=== PATIENT | male | born 1965 | race African-American/Black ===

== ENCOUNTER 2018-06-09 16:16 | Emergency (ER) | payer MEDICAID ==
[~2018-06-09] VITALS: Ht 185.4 cm; Wt 72.0 kg
[~2018-06-09 16:16] MED LIST: HYDR-4383 PO; NO HOME MEDS
[2018-06-09 16:52] LABS: EOSINOPHILS # (AUTO) 0.1 X10'3 (0-0.9); EOSINOPHILS % (AUTO) 1.7 % (0-6); HEMATOCRIT 45.5 % (42.0-52.0); LYMPHOCYTES # (AUTO) 1.8 X10'3 (1.1-4.8); LYMPHOCYTES % (AUTO) 54.1 % (21-51); MEAN CORPUSCULAR HEMOGLOBIN 30.4 PG (27.0-31.0); MEAN CORPUSCULAR VOLUME 92.1 FL (78-98); MEAN PLATELET VOLUME 8.7 FL (7.4-10.4); MONOCYTES # (AUTO) 0.3 X10'3 (0-0.9); MONOCYTES % (AUTO) 9.9 % (2-12); NEUTROPHILS # (AUTO) 1.1 X10'3 (1.8-7.7); NEUTROPHILS % (AUTO) 33.3 % (42-75); PLATELET COUNT 223 X10'3 (140-440); RED BLOOD COUNT 4.94 X10'6 (4.70-6.10); RED CELL DISTRIBUTION WIDTH 14.7 % (11.5-14.5); WHITE BLOOD COUNT 3.3 X10'3 (4.5-11.0)
[2018-06-09 17:03] LABS: ALANINE AMINOTRANSFERASE 66 U/L (12-78); ALBUMIN 3.6 G/DL (3.4-5.0); ALBUMIN/GLOBULIN RATIO 0.9 (1.1-1.5); ALKALINE PHOSPHATASE 67 IU/L (46-116); ANION GAP 2 (8-16); ASPARTATE AMINO TRANSFERASE 40 U/L (10-37); BILIRUBIN,TOTAL 0.2 MG/DL (0.1-1.0); BLOOD UREA NITROGEN 17 MG/DL (7-18); BUN/CREATININE RATIO 15.7 (5.4-32.0); CALCIUM 9.7 MG/DL (8.5-10.1); CHLORIDE 100 MMOL/L (99-107); CREATININE 1.08 MG/DL (0.60-1.10); GLUCOSE 73 MG/DL (70-104); POTASSIUM 5.3 MMOL/L (3.5-5.1); SODIUM 138 MMOL/L (135-145); TOTAL CARBON DIOXIDE 35.9 MMOL/L (24-32); TOTAL PROTEIN 7.7 G/DL (6.4-8.2); eGFR 86 ML/MIN
[2018-06-09] MEDS ORDERED: normal saline 1000ML IV soln IVB ONE (17:05)
[2018-06-09 17:24] LABS: ACETAMINOPHEN < 2.0 UG/ML (10-30); ETHANOL < 0.010 GM/DL (0.0-0.010)
[2018-06-09 17:27] VITALS: BP 124/78
[2018-06-09] MEDS ORDERED: fentaNYL/PF 50MCG/1 ML 2ML syringe ONE (17:28)
[2018-06-09] MEDS ORDERED: LIDOcaine Viscous 15ml cup ONE (17:28)
[2018-06-09] MEDS ORDERED: MIDAZolam 5mg/5ml vial ONE (17:28)
[2018-06-09 17:47] VITALS: BP 127/72
[2018-06-09 17:57] VITALS: BP 115/58
[2018-06-09 18:07] VITALS: BP 117/56
[2018-06-09 18:17] VITALS: BP 126/56
== END 2018-06-09 19:03 ==
LOC: ER 16:16
DX: T18.2XXA Foreign body in stomach, initial encounter (principal); K59.00 Constipation, unspecified; R45.851 Suicidal ideations; F32.9 Major depressive disorder, single episode, unspecified; F20.9 Schizophrenia, unspecified; F12.90 Cannabis use, unspecified, uncomplicated; F15.90 Other stimulant use, unspecified, uncomplicated; F14.90 Cocaine use, unspecified, uncomplicated; Z59.0 Homelessness; Z56.0 Unemployment, unspecified; Z98.890 Other specified postprocedural states; Z88.5 Allergy status to narcotic agent; Z88.0 Allergy status to penicillin; Y92.9 Unspecified place or not applicable
CPT/HCPCS: 36415; 43247; 74018; 74021; 80053; 80320; 80329; 84443; 85025; 99152; 99285; J2250; J3010; J7030; A4620

== ENCOUNTER 2022-04-27 13:59 | Emergency (ER) | payer MEDICAID ==
[~2022-04-27] VITALS: Ht 185.4 cm; Wt 70.0 kg
[2022-04-27 14:30] VITALS: BP 122/80
[2022-04-27] MEDS ORDERED: morphine 4 MG/ML inj SYRINge IM ONE (15:30)
[2022-04-27] MEDS ORDERED: IOHEXOL 12MG/ML oral solution 500 ML BOTTLE PO ONE (15:40)
[2022-04-27] MEDS ORDERED: morphine 4 MG/ML inj SYRINge IV PRN (15:40)
[2022-04-27 16:34] LABS: BASOPHILS % (AUTO) 0.7 % (0-1); EOSINOPHILS % (AUTO) 0.5 % (0-6); HEMATOCRIT 45.4 % (42.0-52.0); HEMOGLOBIN 14.8 g/dl (14.0-17.9); LYMPHOCYTES # (AUTO) 1.2 X10'3 (1.1-4.8); LYMPHOCYTES % (AUTO) 21.9 % (21-51); MEAN CORPUSCULAR HEMOGLOBIN 30.2 PG (27.0-31.0); MEAN CORPUSCULAR HGB CONC 32.6 g/dL (33.0-36.5); MEAN CORPUSCULAR VOLUME 92.5 FL (78-98); MEAN PLATELET VOLUME 8.5 FL (7.4-10.4); MONOCYTES # (AUTO) 0.4 X10'3 (0-0.9); MONOCYTES % (AUTO) 7.3 % (2-12); NEUTROPHILS # (AUTO) 3.7 X10'3 (1.8-7.7); NEUTROPHILS % (AUTO) 69.6 % (42-75); PLATELET COUNT 245 X10'3 (140-440); RED BLOOD COUNT 4.91 X10'6 (4.70-6.10); RED CELL DISTRIBUTION WIDTH 14.4 % (11.5-14.5); WHITE BLOOD COUNT 5.4 X10'3 (4.5-11.0)
[2022-04-27 16:49] LABS: ALANINE AMINOTRANSFERASE 36 U/L (12-78); ALBUMIN 3.9 G/DL (3.4-5.0); ALBUMIN/GLOBULIN RATIO 0.9 (1.1-1.5); ALKALINE PHOSPHATASE 84 IU/L (46-116); ANION GAP 6 (8-16); ASPARTATE AMINO TRANSFERASE 32 U/L (10-37); BILIRUBIN,TOTAL 0.6 MG/DL (0.1-1.0); BLOOD UREA NITROGEN 19 MG/DL (7-18); BUN/CREATININE RATIO 20.9 (5.4-32.0); CALCIUM 9.8 MG/DL (8.5-10.1); CHLORIDE 103 MMOL/L (99-107); CREATININE 0.91 MG/DL (0.60-1.10); GLUCOSE 86 MG/DL (70-104); POTASSIUM 3.3 MMOL/L (3.5-5.1); SODIUM 140 MMOL/L (135-145); TOTAL CARBON DIOXIDE 31.5 MMOL/L (24-32); TOTAL PROTEIN 8.1 G/DL (6.4-8.2); eGFR > 90 ML/MIN
--- NOTE | 2022-04-27 17:03 | NUR ---
PATIENT REFUSES TO DRINK CT PREP. PATIENT WILL BE DC HOME.
--- NOTE | 2022-04-27 19:35 | NUR ---
AWOKE PT AND WHEEL ED PT TO LOBBY TO AWAIT FOR A TAXI THAT WILL TAKE HIM TO [facility] [address] PER HIS REQUEST PT DENIES THE NEED FOR CLOTHING OR FOOOD AND STATES HE HAS FRIENDS IN [facility] THAT HELP ., PT DISCHARGED
== END 2022-04-27 19:36 | disposition home or self-care (01) ==
LOC: ER 14:00
DX: K40.90 Unilateral inguinal hernia, without obstruction or gangrene, not specified as recurrent (principal); F12.90 Cannabis use, unspecified, uncomplicated; F15.20 Other stimulant dependence, uncomplicated; F14.10 Cocaine abuse, uncomplicated; Z88.8 Allergy status to other drugs, medicaments and biological substances; Z59.00 Homelessness unspecified; Z56.0 Unemployment, unspecified
CPT/HCPCS: 36415; 80053; 85025; 96372; 99284; J2270

== ENCOUNTER 2022-05-10 13:19 | Emergency (ER) | payer MEDICAID ==
[~2022-05-10] VITALS: Ht 185.4 cm; Wt 75.0 kg
[2022-05-10] MEDS ORDERED: ketorolac trometh. 30mg/ml inj. IM ONE (15:10)
[2022-05-10] MEDS ORDERED: normal saline 1000ML IV soln IV ONE (15:30)
[2022-05-10 16:05] VITALS: BP 128/60
[2022-05-10 16:09] LABS: HEMOGLOBIN 14.3 g/dl (14.0-17.9); LYMPHOCYTES # (AUTO) 0.7 X10'3 (1.1-4.8); LYMPHOCYTES % (AUTO) 9.3 % (21-51); MEAN CORPUSCULAR HGB CONC 33.6 g/dL (33.0-36.5)
[2022-05-10 16:10] LABS: BASOPHILS % (AUTO) 0.6 % (0-1); CLARITY,URINE CLEAR (Clear); COLOR,URINE YELLOW (Yellow); EOSINOPHILS % (AUTO) 0.1 % (0-6); GLUCOSE, URINE NEGATIVE (Neg); HEMATOCRIT 42.5 % (42.0-52.0); KETONES,URINE NEGATIVE (Neg); LEUKOCYTE ESTERASE ,URINE SMALL (Neg); MEAN CORPUSCULAR HEMOGLOBIN 30.4 PG (27.0-31.0); MEAN CORPUSCULAR VOLUME 90.7 FL (78-98); MEAN PLATELET VOLUME 8.2 FL (7.4-10.4); MONOCYTES # (AUTO) 0.8 X10'3 (0-0.9); MONOCYTES % (AUTO) 11.3 % (2-12); NEUTROPHILS # (AUTO) 5.6 X10'3 (1.8-7.7); NEUTROPHILS % (AUTO) 78.7 % (42-75); NITRITES, URINE POSITIVE (Neg); OCCULT BLOOD,URINE SMALL (Neg); PLATELET COUNT 184 X10'3 (140-440); PROTEIN,URINE 30 mg/dl (Neg); RED BLOOD COUNT 4.69 X10'6 (4.70-6.10); RED CELL DISTRIBUTION WIDTH 14.7 % (11.5-14.5); WHITE BLOOD COUNT 7.1 X10'3 (4.5-11.0)
[2022-05-10 16:14] LABS: UA COLLECTION TYPE URINAL
[2022-05-10 16:15] LABS: BACTERIA,URINE 4+ /HPF (Neg); MUCUS STRANDS FEW /LPF (Neg); SPERM MODERATE /HPF (NEGATIVE); SQUAMOUS EPITHELIAL CELL,UR FEW /LPF (FEW); WBC,URINE 20-30 /HPF (0-4)
[2022-05-10 16:24] LABS: ALANINE AMINOTRANSFERASE 37 U/L (12-78); ALBUMIN 3.1 G/DL (3.4-5.0); ALBUMIN/GLOBULIN RATIO 0.6 (1.1-1.5); ALKALINE PHOSPHATASE 106 IU/L (46-116); ANION GAP 9 (8-16); ASPARTATE AMINO TRANSFERASE 40 U/L (10-37); BILIRUBIN,TOTAL 0.7 MG/DL (0.1-1.0); BLOOD UREA NITROGEN 13 MG/DL (7-18); BUN/CREATININE RATIO 15.1 (5.4-32.0); CALCIUM 10.3 MG/DL (8.5-10.1); CHLORIDE 97 MMOL/L (99-107); CREATININE 0.86 MG/DL (0.60-1.10); GLUCOSE 89 MG/DL (70-104); POTASSIUM 4.1 MMOL/L (3.5-5.1); SODIUM 136 MMOL/L (135-145); TOTAL CARBON DIOXIDE 29.7 MMOL/L (24-32); TOTAL PROTEIN 8.1 G/DL (6.4-8.2); eGFR > 90 ML/MIN
[2022-05-10 16:25] LABS: URINE AMPHETAMINE SCREEN POSITIVE (Neg); URINE BARBITUATE SCREEN NEGATIVE (Neg); URINE BENZODIAZEPINES SCREEN NEGATIVE (Neg); URINE CANNABINOID SCREEN POSITIVE (Neg); URINE COCAINE SCREEN NEGATIVE (Neg); URINE METHADONE SCREEN NEGATIVE (Neg); URINE OPIATE SCREEN NEGATIVE (Neg); URINE PHENCYCLIDINE SCREEN NEGATIVE (Neg)
[2022-05-10] MEDS ORDERED: CefTRIAXone/D5W-Rocephin 1gm 50 ML IV ONE (16:30)
[2022-05-10] MEDS ORDERED: acetaminophen 325mg tablet PO ONE (17:28)
[2022-05-10] MEDS ORDERED: ACET-1008 PO ×2 (18:22)
[2022-05-10] MEDS ORDERED: CIPR-259 PO ×2 (18:22)
[2022-05-11] MEDS ORDERED: NO HOME MEDS (18:14)
--- NOTE | 2022-05-14 11:07 | NUR ---
PT CALLED REGARDING LAB WORK ON 05/10/22. PT'S BROTHER STATES THAT PT HAS BEEN HOSPITALIZED AT [facility]. SURGICAL FLOOR CALLED AND PT IS STILL ADMITTED, ADVISED OF LAB WORK BEING POSITIVE FOR UTI AND THAT PROVIDER E-SCRIBED BACTRIM FOR PT. PT CURRENTLY ON ABX PER WOOD CARVING LATHE OPERATOR AND WILL INFORM PT'S HOSPITALIST.
== END 2022-05-10 18:44 | disposition home or self-care (01) ==
LOC: ER 13:19
DX: N10 Acute pyelonephritis (principal); F12.90 Cannabis use, unspecified, uncomplicated; F15.20 Other stimulant dependence, uncomplicated; F14.10 Cocaine abuse, uncomplicated; Z88.8 Allergy status to other drugs, medicaments and biological substances; Z88.0 Allergy status to penicillin; Z56.0 Unemployment, unspecified; Z59.00 Homelessness unspecified
CPT/HCPCS: 36415; 71045; 72100; 80053; 80305; 81001; 83605; 83735; 84145; 85025; 87040; 87077; 87088; 87186; 93005; 96361; 96365; 96372; 99285; J0696; J1885; J7030; J7040

== ENCOUNTER 2022-05-11 01:17 | Inpatient (IN) | payer MEDICAID ==
[~2022-05-11] VITALS: Ht 185.4 cm; Wt 70.5 kg
[~2022-05-11 01:17] MED LIST changes: +ACET-1008 PO; +CIPR-259 PO
[2022-05-11] MEDS ORDERED: normal saline 1000ML IV soln IVB ONE (01:40)
[2022-05-11] MEDS ORDERED: morphine 4 MG/ML inj SYRINge IV ONE (01:45)
[2022-05-11] MEDS ORDERED: HYDROcodone/acetaminophen 5mg/325mg tablet PO PRN (02:10)
[2022-05-11] MEDS ORDERED: ondansetron/PF 4mg/2ml inj IV PRN (02:10)
[2022-05-11] MEDS ORDERED: POTASSIUM BICARB 20meq eff tab 20 MEQ TABLET.EFF PO PRN ×2 (02:10)
[2022-05-11] MEDS ORDERED: acetaminophen 325mg tablet PO PRN (02:10)
[2022-05-11] MEDS ORDERED: magnesium 4gm in 100ml NS 100 ML IV PRN (02:10)
[2022-05-11] MEDS ORDERED: potassium CL 10mEq/100ml bag 100 ML IV PRN (02:10)
[2022-05-11] MEDS ORDERED: mag hydrox/Alum hydrox/simeth 30ml oral suspension PO PRN (02:10)
[2022-05-11] MEDS: normal saline 1000ml 1,000 ML IV SCH ×3 (02:10→22:10)
[2022-05-11] MEDS ORDERED: magnesium 2GM in 50ml NS 50 ML IV PRN (02:10)
[2022-05-11] MEDS ORDERED: LORazepam 2 mg/ml vial IV PRN (02:45)
[2022-05-11 03:19] LABS: ALANINE AMINOTRANSFERASE 36 U/L (12-78); ALBUMIN 2.6 G/DL (3.4-5.0); ALBUMIN/GLOBULIN RATIO 0.6 (1.1-1.5); ALKALINE PHOSPHATASE 104 IU/L (46-116); ANION GAP 8 (8-16); ASPARTATE AMINO TRANSFERASE 35 U/L (10-37); BILIRUBIN,TOTAL 0.4 MG/DL (0.1-1.0); BLOOD UREA NITROGEN 14 MG/DL (7-18); BUN/CREATININE RATIO 16.5 (5.4-32.0); CALCIUM 9.7 MG/DL (8.5-10.1); CHLORIDE 101 MMOL/L (99-107); CREATININE 0.85 MG/DL (0.60-1.10); GLUCOSE 122 MG/DL (70-104); MAGNESIUM 1.9 MG/DL (1.5-2.4); POTASSIUM 4.3 MMOL/L (3.5-5.1); SODIUM 136 MMOL/L (135-145); TOTAL CARBON DIOXIDE 27.2 MMOL/L (24-32); TOTAL PROTEIN 6.9 G/DL (6.4-8.2); eGFR > 90 ML/MIN
[2022-05-11 04:12] LABS: BASOPHILS # (AUTO) 0.1 X10'3 (0-0.2); BASOPHILS % (AUTO) 1.5 % (0-1); EOSINOPHILS # (AUTO) 0.1 X10'3 (0-0.9); EOSINOPHILS % (AUTO) 1.4 % (0-6); HEMATOCRIT 40.3 % (42.0-52.0); HEMOGLOBIN 13.5 g/dl (14.0-17.9); LYMPHOCYTES # (AUTO) 0.3 X10'3 (1.1-4.8); LYMPHOCYTES % (AUTO) 3.5 % (21-51); MEAN CORPUSCULAR HEMOGLOBIN 30.2 PG (27.0-31.0); MEAN CORPUSCULAR HGB CONC 33.5 g/dL (33.0-36.5); MEAN CORPUSCULAR VOLUME 90.1 FL (78-98); MEAN PLATELET VOLUME 8.8 FL (7.4-10.4); MONOCYTES # (AUTO) 1.3 X10'3 (0-0.9); MONOCYTES % (AUTO) 14.3 % (2-12); NEUTROPHILS # (AUTO) 7.3 X10'3 (1.8-7.7); NEUTROPHILS % (AUTO) 79.3 % (42-75); PLATELET COUNT 176 X10'3 (140-440); RED BLOOD COUNT 4.47 X10'6 (4.70-6.10); RED CELL DISTRIBUTION WIDTH 14.7 % (11.5-14.5); WHITE BLOOD COUNT 9.2 X10'3 (4.5-11.0)
[2022-05-11 05:53] LABS: PLATELET ESTIMATE NORMAL; TOTAL CELLS COUNTED 100
[2022-05-11] MEDS: docusate sod 100mg capsule PO SCH ×2 (08:00→20:00)
[2022-05-11] MEDS: K and/or MAG REPLACEMENT MC SCH ×2 (08:00→20:46)
[2022-05-11] MEDS: heparin, porcine 5000 units/ml vial SQ SCH ×3 (08:00→23:18)
[2022-05-11] MEDS: CefTRIAXone 2gm/D5W 50ml BAG 50 ML IV SCH (10:14)
[2022-05-11] MEDS: multivitamins, therapeutics tablet PO SCH (10:14)
--- NOTE | 2022-05-11 11:28 | NUR ---
Received order for consult. Met with Patient in regards to substance use and to see if patient was interested in resources for treatment options. Patient is interested in inpatient rehab. Patient is getting admitted to floor so I told him that I would see him and give him the numbers to start the process through [facility].
[2022-05-11 16:08] LABS: CLARITY,URINE CLEAR (Clear); COLOR,URINE YELLOW (Yellow); GLUCOSE, URINE NEGATIVE (Neg); KETONES,URINE NEGATIVE (Neg); LEUKOCYTE ESTERASE ,URINE NEGATIVE (Neg); NITRITES, URINE NEGATIVE (Neg); OCCULT BLOOD,URINE TRACE-INTACT (Neg); PROTEIN,URINE NEGATIVE (Neg); UROBILINOGEN,URINE 0.2 E.U/dL (0.2-1.0)
[2022-05-11 16:09] LABS: UA COLLECTION TYPE URINAL
[2022-05-11 16:15] LABS: MUCUS STRANDS NONE SEEN /LPF (Neg); RBC,URINE 0-2 /HPF (0-2); SPERM FEW /HPF (NEGATIVE); SQUAMOUS EPITHELIAL CELL,UR FEW /LPF (FEW)
[2022-05-11 16:16] LABS: BACTERIA,URINE NONE SEEN /HPF (Neg)
[2022-05-11] MEDS ORDERED: NO HOME MEDS (18:14)
[2022-05-11 22:30] VITALS: BP 116/70
[2022-05-11] MEDS: magnesium hydroxide 30ml (MOM) UD suspension PO PRN (23:17)
[2022-05-11] MEDS: HYDROcodone/acetaminophen 10/325mg tab PO PRN (23:19)
[2022-05-12 06:00] VITALS: BP 94/60
[2022-05-12 06:49] LABS: BASOPHILS % (AUTO) 0.2 % (0-1); EOSINOPHILS % (AUTO) 0.2 % (0-6); HEMATOCRIT 40.7 % (42.0-52.0); HEMOGLOBIN 13.4 g/dl (14.0-17.9); LYMPHOCYTES # (AUTO) 0.8 X10'3 (1.1-4.8); LYMPHOCYTES % (AUTO) 11.4 % (21-51); MEAN CORPUSCULAR HEMOGLOBIN 29.9 PG (27.0-31.0); MEAN CORPUSCULAR HGB CONC 32.8 g/dL (33.0-36.5); MEAN CORPUSCULAR VOLUME 91.1 FL (78-98); MEAN PLATELET VOLUME 8.3 FL (7.4-10.4); MONOCYTES # (AUTO) 1.7 X10'3 (0-0.9); MONOCYTES % (AUTO) 25.8 % (2-12); NEUTROPHILS # (AUTO) 4.2 X10'3 (1.8-7.7); NEUTROPHILS % (AUTO) 62.4 % (42-75); PLATELET COUNT 226 X10'3 (140-440); RED BLOOD COUNT 4.47 X10'6 (4.70-6.10); RED CELL DISTRIBUTION WIDTH 14.9 % (11.5-14.5); WHITE BLOOD COUNT 6.8 X10'3 (4.5-11.0)
[2022-05-12 07:05] LABS: ALANINE AMINOTRANSFERASE 21 U/L (12-78); ALBUMIN/GLOBULIN RATIO 0.5 (1.1-1.5); ALKALINE PHOSPHATASE 85 IU/L (46-116); ANION GAP 3 (8-16); ASPARTATE AMINO TRANSFERASE 22 U/L (10-37); BILIRUBIN,TOTAL 0.4 MG/DL (0.1-1.0); BLOOD UREA NITROGEN 14 MG/DL (7-18); BUN/CREATININE RATIO 16.1 (5.4-32.0); CALCIUM 8.6 MG/DL (8.5-10.1); CHLORIDE 104 MMOL/L (99-107); CREATININE 0.87 MG/DL (0.60-1.10); GLUCOSE 104 MG/DL (70-104); LIPASE < 50 U/L (73-393); PHOSPHORUS 3.8 MG/DL (2.3-4.5); POTASSIUM 4.1 MMOL/L (3.5-5.1); SODIUM 135 MMOL/L (135-145); TOTAL CARBON DIOXIDE 28.3 MMOL/L (24-32); TOTAL PROTEIN 6.1 G/DL (6.4-8.2); eGFR > 90 ML/MIN
[2022-05-12] MEDS: K and/or MAG REPLACEMENT MC SCH ×2 (08:00→20:00)
[2022-05-12] MEDS: multivitamins, therapeutics tablet PO SCH (09:07)
[2022-05-12] MEDS: heparin, porcine 5000 units/ml vial SQ SCH ×2 (09:07→16:38)
[2022-05-12] MEDS: CefTRIAXone 2gm/D5W 50ml BAG 50 ML IV SCH (09:07)
[2022-05-12] MEDS: docusate sod 100mg capsule PO SCH (09:07)
[2022-05-12 10:00] VITALS: BP 112/70
--- NOTE | 2022-05-12 10:30 | NUR ---
Pt resting after Ativan IV, but continues to shift in the bed frequently. Awakens easily, but falls back asleep fast. RR= 16.
[2022-05-12] MEDS: HYDROcodone/acetaminophen 10/325mg tab PO PRN (16:41)
[2022-05-12 18:00] VITALS: BP 142/70
--- NOTE | 2022-05-12 18:30 | NUR ---
Patient report given, questions answered & plan of care reviewed with HALLIE Fall.
[2022-05-12 22:00] VITALS: BP 122/72
[2022-05-13] MEDS: docusate sod 100mg capsule PO SCH ×3 (00:12→19:52)
[2022-05-13] MEDS: heparin, porcine 5000 units/ml vial SQ SCH ×3 (00:12→16:30)
[2022-05-13 01:49] VITALS: BP 109/63
[2022-05-13] MEDS ORDERED: LORazepam 1 MG tablet PO PRN (02:45)
[2022-05-13] MEDS ORDERED: LORazepam 2 mg/ml vial IV PRN (02:45)
--- NOTE | 2022-05-13 03:59 | NUR ---
Pt dinner tray removed from room without documenting how much was eaten.
[2022-05-13 06:15] LABS: BASOPHILS # (AUTO) 0.1 X10'3 (0-0.2); BASOPHILS % (AUTO) 0.7 % (0-1); EOSINOPHILS % (AUTO) 0.2 % (0-6); HEMATOCRIT 36.2 % (42.0-52.0); HEMOGLOBIN 12.5 g/dl (14.0-17.9); LYMPHOCYTES # (AUTO) 1.2 X10'3 (1.1-4.8); LYMPHOCYTES % (AUTO) 11.7 % (21-51); MEAN CORPUSCULAR HEMOGLOBIN 30.7 PG (27.0-31.0); MEAN CORPUSCULAR HGB CONC 34.5 g/dL (33.0-36.5); MEAN PLATELET VOLUME 8.1 FL (7.4-10.4); MONOCYTES # (AUTO) 1.9 X10'3 (0-0.9); MONOCYTES % (AUTO) 19.6 % (2-12); NEUTROPHILS # (AUTO) 6.7 X10'3 (1.8-7.7); NEUTROPHILS % (AUTO) 67.8 % (42-75); PLATELET COUNT 276 X10'3 (140-440); RED BLOOD COUNT 4.07 X10'6 (4.70-6.10); RED CELL DISTRIBUTION WIDTH 14.8 % (11.5-14.5); WHITE BLOOD COUNT 9.9 X10'3 (4.5-11.0)
[2022-05-13 06:32] LABS: ALANINE AMINOTRANSFERASE 24 U/L (12-78); ALBUMIN 2.1 G/DL (3.4-5.0); ALBUMIN/GLOBULIN RATIO 0.5 (1.1-1.5); ALKALINE PHOSPHATASE 79 IU/L (46-116); ANION GAP 6 (8-16); ASPARTATE AMINO TRANSFERASE 22 U/L (10-37); BILIRUBIN,TOTAL 0.4 MG/DL (0.1-1.0); BLOOD UREA NITROGEN 15 MG/DL (7-18); BUN/CREATININE RATIO 18.1 (5.4-32.0); CALCIUM 8.8 MG/DL (8.5-10.1); CHLORIDE 101 MMOL/L (99-107); CREATININE 0.83 MG/DL (0.60-1.10); GLUCOSE 102 MG/DL (70-104); LIPASE 66 U/L (73-393); MAGNESIUM 2.3 MG/DL (1.5-2.4); PHOSPHORUS 3.2 MG/DL (2.3-4.5); POTASSIUM 4.3 MMOL/L (3.5-5.1); SODIUM 136 MMOL/L (135-145); TOTAL PROTEIN 6.4 G/DL (6.4-8.2); eGFR > 90 ML/MIN
--- NOTE | 2022-05-13 06:53 | NUR ---
Problems reprioritized. Patient report given, questions answered & plan of care reviewed with HALLIE Lovelace.
--- NOTE | 2022-05-13 07:17 | NUR ---
AM vitals not done. Pt would not hold still.
[2022-05-13] MEDS: K and/or MAG REPLACEMENT MC SCH ×2 (08:00→20:00)
--- NOTE | 2022-05-13 08:42 | NUR ---
Received order to consult patient for substance use. Met with patient to see if he was interested in resources for treatment options. Patient would like to go to inpatient rehab. I gave patient [facility] number to get process started. I also gave patient a list of facilities and my card to call me with any questions.
[2022-05-13] MEDS: CefTRIAXone 2gm/D5W 50ml BAG 50 ML IV SCH (08:51)
[2022-05-13] MEDS: multivitamins, therapeutics tablet PO SCH (08:52)
[2022-05-13 11:04] VITALS: BP 104/57
[2022-05-13] MEDS: HYDROcodone/acetaminophen 10/325mg tab PO PRN ×2 (11:23→19:53)
--- NOTE | 2022-05-13 18:35 | NUR ---
Patient in room [facility]. I have received report from LIGIA STERLING and had the opportunity to ask questions and assume patient care.
[2022-05-13 19:00] VITALS: BP 109/67
[2022-05-14] VITALS: BP 104/54
[2022-05-14] MEDS: heparin, porcine 5000 units/ml vial SQ SCH ×3 (00:13→16:23)
[2022-05-14 05:00] VITALS: BP 109/59
[2022-05-14 06:00] LABS: BASOPHILS # (AUTO) 0.1 X10'3 (0-0.2); BASOPHILS % (AUTO) 0.6 % (0-1); EOSINOPHILS % (AUTO) 0.2 % (0-6); HEMATOCRIT 36.1 % (42.0-52.0); HEMOGLOBIN 12.6 g/dl (14.0-17.9); LYMPHOCYTES % (AUTO) 11.2 % (21-51); MEAN CORPUSCULAR HEMOGLOBIN 30.9 PG (27.0-31.0); MEAN CORPUSCULAR HGB CONC 34.9 g/dL (33.0-36.5); MEAN CORPUSCULAR VOLUME 88.4 FL (78-98); MEAN PLATELET VOLUME 7.3 FL (7.4-10.4); MONOCYTES # (AUTO) 1.2 X10'3 (0-0.9); MONOCYTES % (AUTO) 13.4 % (2-12); NEUTROPHILS # (AUTO) 6.4 X10'3 (1.8-7.7); NEUTROPHILS % (AUTO) 74.6 % (42-75); PLATELET COUNT 334 X10'3 (140-440); RED BLOOD COUNT 4.08 X10'6 (4.70-6.10); RED CELL DISTRIBUTION WIDTH 14.6 % (11.5-14.5); WHITE BLOOD COUNT 8.6 X10'3 (4.5-11.0)
[2022-05-14 06:12] LABS: ALANINE AMINOTRANSFERASE 21 U/L (12-78); ALBUMIN/GLOBULIN RATIO 0.5 (1.1-1.5); ALKALINE PHOSPHATASE 73 IU/L (46-116); ANION GAP 7 (8-16); ASPARTATE AMINO TRANSFERASE 19 U/L (10-37); BILIRUBIN,TOTAL 0.4 MG/DL (0.1-1.0); BLOOD UREA NITROGEN 13 MG/DL (7-18); BUN/CREATININE RATIO 15.3 (5.4-32.0); CALCIUM 8.9 MG/DL (8.5-10.1); CHLORIDE 99 MMOL/L (99-107); CREATININE 0.85 MG/DL (0.60-1.10); GLUCOSE 109 MG/DL (70-104); LIPASE 71 U/L (73-393); MAGNESIUM 2.2 MG/DL (1.5-2.4); PHOSPHORUS 3.4 MG/DL (2.3-4.5); POTASSIUM 4.4 MMOL/L (3.5-5.1); SODIUM 134 MMOL/L (135-145); TOTAL PROTEIN 6.2 G/DL (6.4-8.2); eGFR > 90 ML/MIN
--- NOTE | 2022-05-14 06:30 | NUR ---
Problems reprioritized. Patient report given, questions answered & plan of care reviewed with PETER STERLING.
--- NOTE | 2022-05-14 06:44 | NUR ---
Patient in room [facility]. I have received report from Enid Rossi and had the opportunity to ask questions and assume patient care.
[2022-05-14] MEDS: K and/or MAG REPLACEMENT MC SCH ×2 (07:48→20:00)
[2022-05-14] MEDS: docusate sod 100mg capsule PO SCH ×2 (07:57→21:03)
[2022-05-14] MEDS: multivitamins, therapeutics tablet PO SCH (07:57)
[2022-05-14] MEDS: CefTRIAXone 2gm/D5W 50ml BAG 50 ML IV SCH ×2 (07:57→08:00)
[2022-05-14 10:00] VITALS: BP 114/58
[2022-05-14] MEDS ORDERED: SULF1TAB49 PO (10:49)
--- NOTE | 2022-05-14 10:51 | NUR ---
PAGER ID: [phone] MESSAGE: Zachariah Girard in [id number] - Pt's iv went bad. Poked multiple times.Pt now refusing iv. -Jihan [phone]
[2022-05-14] MEDS: HYDROcodone/acetaminophen 10/325mg tab PO PRN (16:10)
--- NOTE | 2022-05-14 17:18 | NUR ---
PAGER ID: [phone] MESSAGE: Zachariah Girard in [phone] - Just following up regarding changing his antibiotics from IV to PO. -Jihan
[2022-05-15] MEDS: heparin, porcine 5000 units/ml vial SQ SCH ×3 (00:34→16:39)
[2022-05-15] MEDS: HYDROcodone/acetaminophen 10/325mg tab PO PRN ×3 (00:35→21:40)
[2022-05-15] MEDS ORDERED: LORazepam 1 MG tablet PO PRN (02:45)
[2022-05-15] MEDS ORDERED: LORazepam 2 mg/ml vial IV PRN (02:45)
--- NOTE | 2022-05-15 06:36 | NUR ---
Patient in room [facility]. I have received report from Marci STERLING and had the opportunity to ask questions and assume patient care.
[2022-05-15 06:38] VITALS: BP 103/64
[2022-05-15 06:39] VITALS: BP 103/64
[2022-05-15] MEDS: docusate sod 100mg capsule PO SCH ×3 (08:00→21:40)
[2022-05-15] MEDS: folic acid 1mg tablet PO SCH (08:00)
[2022-05-15] MEDS: thiamine 100mg tablet PO SCH (08:00)
[2022-05-15] MEDS: multivitamins, therapeutics tablet PO SCH (08:00)
[2022-05-15] MEDS: K and/or MAG REPLACEMENT MC SCH ×2 (08:00→19:57)
--- NOTE | 2022-05-15 09:15 | NUR ---
Pt refused to take morning meds x2 attempts this AM. Pt declines to remove arms from within blanket for nursing staff to scan identification band to administer medications. Pt says he doesnt need this AMs medications and will be just fine. Will continue to monitor pt.
[2022-05-15] MEDS: cefpodoxime proxetil 100mg tablet PO SCH ×2 (10:26→16:38)
--- NOTE | 2022-05-15 17:10 | NUR ---
PAINTER MAINTENANCE documentation: I have reviewed and agree with all interventions, assessments performed and documented by Jazmyne Saenz LVN.
[2022-05-15 18:00] VITALS: BP 101/64
[2022-05-15 22:00] VITALS: BP 99/54
[2022-05-16] MEDS: HYDROcodone/acetaminophen 10/325mg tab PO PRN ×4 (04:50→21:13)
[2022-05-16 06:00] VITALS: BP 100/61
--- NOTE | 2022-05-16 06:27 | NUR ---
Patient in room [facility]. I have received report from [employer] and had the opportunity to ask questions and assume patient care.
--- NOTE | 2022-05-16 06:33 | NUR ---
Problems reprioritized. Patient report given, questions answered & plan of care reviewed with Lima STERLING. Addendum: 05/16/22 at 0634 by Marci Covington RN Amended: Links added.
[2022-05-16] MEDS: K and/or MAG REPLACEMENT MC SCH ×2 (08:00→19:14)
[2022-05-16] MEDS: multivitamins, therapeutics tablet PO SCH (08:17)
[2022-05-16] MEDS: docusate sod 100mg capsule PO SCH ×2 (08:17→20:00)
[2022-05-16] MEDS: thiamine 100mg tablet PO SCH (08:17)
[2022-05-16] MEDS: folic acid 1mg tablet PO SCH (08:17)
[2022-05-16] MEDS: heparin, porcine 5000 units/ml vial SQ SCH ×4 (08:18→22:44)
[2022-05-16] MEDS: magnesium hydroxide 30ml (MOM) UD suspension PO PRN (08:18)
[2022-05-16] MEDS: cefpodoxime proxetil 100mg tablet PO SCH ×2 (09:25→17:09)
[2022-05-16 10:30] VITALS: BP 120/63
--- NOTE | 2022-05-16 13:35 | NUR ---
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 Receiving routine thiamine, folic acid, MVI for etoh. Pt PO 100% avg regular diet meeting energy needs though partially meeting estimated protein needs given DX. Double proteins BIDLD added given 100% PO trends; dietary notified. No BM since admit 5 days receiving routine colace w/ PRN MoM provided this AM; first dosage since 05/11 per EMR. Will monitor for nutrition intervention needs this admit. Rec: 1. continue regular diet; double protein BIDLD 2. routine thiamine, folic acid, MVI for etoh hx 3. routine bowel care; consider additional given 5 days constipation per physician discretion 4. scaled wt this admit; subsequent weekly wts Addendum: 05/16/22 at [address] Amended: Links added.
[2022-05-16 18:00] VITALS: BP 97/46
--- NOTE | 2022-05-16 21:14 | NUR ---
Patient has refused to have his colace tonight and MOM, he also stated he does not want any shots tonight. The only medication he wanted to receive was his pain meds. Addendum: 05/16/22 at 2117 by Marci Covington RN Amended: Links added.
[2022-05-17] MEDS: HYDROcodone/acetaminophen 10/325mg tab PO PRN ×3 (04:03→16:50)
--- NOTE | 2022-05-17 06:05 | NUR ---
Patient in room [facility]. I have received report from [employer] and had the opportunity to ask questions and assume patient care.
--- NOTE | 2022-05-17 06:27 | NUR ---
Problems reprioritized. Patient report given, questions answered & plan of care reviewed with Mayelin STERLING. Addendum: 05/17/22 at 0627 by Marci Covington RN Amended: Links added.
[2022-05-17] MEDS: heparin, porcine 5000 units/ml vial SQ SCH ×2 (08:00→16:00)
[2022-05-17] MEDS: K and/or MAG REPLACEMENT MC SCH ×2 (08:00→20:00)
[2022-05-17] MEDS: docusate sod 100mg capsule PO SCH ×2 (09:09→21:14)
[2022-05-17] MEDS: multivitamins, therapeutics tablet PO SCH (09:09)
[2022-05-17] MEDS: thiamine 100mg tablet PO SCH (09:09)
[2022-05-17] MEDS: folic acid 1mg tablet PO SCH (09:09)
[2022-05-17] MEDS: cefpodoxime proxetil 100mg tablet PO SCH ×2 (09:11→16:50)
[2022-05-17 10:00] VITALS: BP 98/54
--- NOTE | 2022-05-17 15:30 | NUR ---
Pt able to ambulate with FWW and 1 person standy by assist. Pt ambulated 50 ft and tolerated it well.
[2022-05-17] MEDS: magnesium hydroxide 30ml (MOM) UD suspension PO PRN (16:49)
--- NOTE | 2022-05-17 18:11 | NUR ---
Problems reprioritized. Patient report given, questions answered & plan of care reviewed with
[2022-05-17 22:00] VITALS: BP 114/49
[2022-05-17] MEDS: acetaminophen 325mg tablet PO PRN (22:26)
[2022-05-17 23:58] VITALS: BP 105/51
--- NOTE | 2022-05-18 00:15 | NUR ---
Pt. refused Heparin shot. Educated pt on the benefits/use of the medication. Pt resting at this time. Will continue to monitor.
[2022-05-18] MEDS: HYDROcodone/acetaminophen 10/325mg tab PO PRN (02:54)
[2022-05-18] MEDS ORDERED: oxyCODONE/APAP 10/325mg tablet PO PRN (04:50)
--- NOTE | 2022-05-18 05:24 | NUR ---
Pt. refused morning labs
--- NOTE | 2022-05-18 06:11 | NUR ---
Patient report given, questions answered & plan of care reviewed with Mayelin STERLING
--- NOTE | 2022-05-18 06:23 | NUR ---
Patient in room [facility]. I have received report from October and had the opportunity to ask questions and assume patient care.
[2022-05-18 06:32] VITALS: BP 112/59
[2022-05-18 06:59] LABS: BASOPHILS # (AUTO) 0.1 X10'3 (0-0.2); BASOPHILS % (AUTO) 0.7 % (0-1); EOSINOPHILS % (AUTO) 0.1 % (0-6); HEMATOCRIT 36.7 % (42.0-52.0); HEMOGLOBIN 12.5 g/dl (14.0-17.9); LYMPHOCYTES % (AUTO) 10.5 % (21-51); MEAN CORPUSCULAR HEMOGLOBIN 30.4 PG (27.0-31.0); MEAN CORPUSCULAR VOLUME 89.4 FL (78-98); MEAN PLATELET VOLUME 7.6 FL (7.4-10.4); MONOCYTES # (AUTO) 0.9 X10'3 (0-0.9); MONOCYTES % (AUTO) 9.5 % (2-12); NEUTROPHILS # (AUTO) 7.3 X10'3 (1.8-7.7); NEUTROPHILS % (AUTO) 79.2 % (42-75); PLATELET COUNT 553 X10'3 (140-440); RED BLOOD COUNT 4.11 X10'6 (4.70-6.10); RED CELL DISTRIBUTION WIDTH 14.4 % (11.5-14.5); WHITE BLOOD COUNT 9.3 X10'3 (4.5-11.0)
[2022-05-18 07:23] LABS: ALANINE AMINOTRANSFERASE 18 U/L (12-78); ALBUMIN 2.2 G/DL (3.4-5.0); ALBUMIN/GLOBULIN RATIO 0.4 (1.1-1.5); ALKALINE PHOSPHATASE 76 IU/L (46-116); ANION GAP 4 (8-16); ASPARTATE AMINO TRANSFERASE 16 U/L (10-37); BILIRUBIN,TOTAL 0.4 MG/DL (0.1-1.0); BLOOD UREA NITROGEN 17 MG/DL (7-18); BUN/CREATININE RATIO 17.9 (5.4-32.0); CALCIUM 9.4 MG/DL (8.5-10.1); CHLORIDE 97 MMOL/L (99-107); CREATININE 0.95 MG/DL (0.60-1.10); GLUCOSE 111 MG/DL (70-104); POTASSIUM 4.7 MMOL/L (3.5-5.1); SODIUM 133 MMOL/L (135-145); TOTAL CARBON DIOXIDE 32.2 MMOL/L (24-32); TOTAL PROTEIN 7.1 G/DL (6.4-8.2); eGFR > 90 ML/MIN
[2022-05-18] MEDS: K and/or MAG REPLACEMENT MC SCH ×2 (08:00→20:00)
[2022-05-18] MEDS: docusate sod 100mg capsule PO SCH ×2 (08:48→20:43)
[2022-05-18] MEDS: cefpodoxime proxetil 100mg tablet PO SCH ×2 (08:49→17:58)
[2022-05-18] MEDS: folic acid 1mg tablet PO SCH (08:49)
[2022-05-18] MEDS: multivitamins, therapeutics tablet PO SCH (08:49)
[2022-05-18] MEDS: thiamine 100mg tablet PO SCH (08:49)
[2022-05-18] MEDS: heparin, porcine 5000 units/ml vial SQ SCH ×3 (08:50→15:31)
[2022-05-18] MEDS ORDERED: ketorolac tromethamine 15mg/ml inj. IM PRN (09:15)
[2022-05-18 11:54] VITALS: BP 110/62
[2022-05-18] MEDS: acetaminophen 325mg tablet PO PRN (11:59)
[2022-05-18] MEDS: ibuprofen tablet 400 MG TABLET PO PRN ×2 (13:12→20:43)
[2022-05-18] MEDS: magnesium hydroxide 30ml (MOM) UD suspension PO PRN (15:30)
--- NOTE | 2022-05-18 17:16 | NUR ---
Student documentation: I have reviewed and agree with all interventions, medication administration per hospital protocol and assessments performed and documented by student from [facility].
[2022-05-18 18:00] VITALS: BP 101/56
--- NOTE | 2022-05-18 18:07 | NUR ---
Pt showered and was able to ambulate with a FWW approximately 125 ft.
--- NOTE | 2022-05-18 18:13 | NUR ---
Problems reprioritized. Patient report given, questions answered & plan of care reviewed with
[2022-05-18] MEDS: buPROPion 75mg tablet PO SCH (20:43)
[2022-05-19] VITALS: BP 90/50
[2022-05-19] MEDS: heparin, porcine 5000 units/ml vial SQ SCH ×3 (02:02→16:35)
[2022-05-19] MEDS: acetaminophen 325mg tablet PO PRN ×3 (02:17→17:02)
[2022-05-19] MEDS: ibuprofen tablet 400 MG TABLET PO PRN ×3 (04:21→21:02)
[2022-05-19 06:11] LABS: BASOPHILS # (AUTO) 0.1 X10'3 (0-0.2); BASOPHILS % (AUTO) 0.7 % (0-1); EOSINOPHILS % (AUTO) 0.3 % (0-6); HEMOGLOBIN 12.2 g/dl (14.0-17.9); LYMPHOCYTES # (AUTO) 0.7 X10'3 (1.1-4.8); LYMPHOCYTES % (AUTO) 7.5 % (21-51); MEAN CORPUSCULAR VOLUME 89.6 FL (78-98); MEAN PLATELET VOLUME 7.2 FL (7.4-10.4); RED CELL DISTRIBUTION WIDTH 14.6 % (11.5-14.5)
[2022-05-19 06:14] LABS: HEMATOCRIT 36.9 % (42.0-52.0); MEAN CORPUSCULAR HEMOGLOBIN 29.6 PG (27.0-31.0); MEAN CORPUSCULAR HGB CONC 33.1 g/dL (33.0-36.5); MONOCYTES % (AUTO) 10.3 % (2-12); NEUTROPHILS # (AUTO) 7.6 X10'3 (1.8-7.7); NEUTROPHILS % (AUTO) 81.2 % (42-75); PLATELET COUNT 617 X10'3 (140-440); RED BLOOD COUNT 4.12 X10'6 (4.70-6.10); WHITE BLOOD COUNT 9.4 X10'3 (4.5-11.0)
[2022-05-19 06:26] LABS: ALANINE AMINOTRANSFERASE 18 U/L (12-78); ALBUMIN 2.1 G/DL (3.4-5.0); ALBUMIN/GLOBULIN RATIO 0.4 (1.1-1.5); ALKALINE PHOSPHATASE 74 IU/L (46-116); ANION GAP 4 (8-16); ASPARTATE AMINO TRANSFERASE 15 U/L (10-37); BILIRUBIN,TOTAL 0.3 MG/DL (0.1-1.0); BLOOD UREA NITROGEN 26 MG/DL (7-18); CALCIUM 9.4 MG/DL (8.5-10.1); CHLORIDE 99 MMOL/L (99-107); GLUCOSE 99 MG/DL (70-104); POTASSIUM 4.8 MMOL/L (3.5-5.1); SODIUM 136 MMOL/L (135-145); TOTAL CARBON DIOXIDE 33.4 MMOL/L (24-32); TOTAL PROTEIN 6.8 G/DL (6.4-8.2); eGFR > 90 ML/MIN
[2022-05-19 06:53] LABS: GIANT PLATELET FEW; LARGE PLATELETS FEW; PLATELET ESTIMATE INCREASED
[2022-05-19] MEDS: K and/or MAG REPLACEMENT MC SCH ×2 (08:00→20:00)
--- NOTE | 2022-05-19 08:19 | NUR ---
Patient refusing to have vital signs taken. Educated patient reason for monitoring vs but continues to refuse. Will reattempt.
[2022-05-19] MEDS: folic acid 1mg tablet PO SCH (08:28)
[2022-05-19] MEDS: multivitamins, therapeutics tablet PO SCH (08:28)
[2022-05-19] MEDS: naltrexone 50mg tablet PO SCH (08:29)
[2022-05-19] MEDS: buPROPion 75mg tablet PO SCH ×3 (08:29→19:56)
[2022-05-19] MEDS: thiamine 100mg tablet PO SCH (08:29)
[2022-05-19] MEDS: magnesium hydroxide 30ml (MOM) UD suspension PO PRN (08:33)
[2022-05-19] MEDS: cefpodoxime proxetil 100mg tablet PO SCH ×2 (08:33→16:58)
[2022-05-19] MEDS: docusate sod 100mg capsule PO SCH ×2 (08:33→19:56)
[2022-05-19 12:07] VITALS: BP 95/47
[2022-05-19 18:00] VITALS: BP 103/50
--- NOTE | 2022-05-19 18:14 | NUR ---
Problems reprioritized. Patient report given, questions answered & plan of care reviewed with HALLIE Patterson.
[2022-05-19 22:00] VITALS: BP 110/62
--- NOTE | 2022-05-19 23:05 | NUR ---
Student documentation: I have reviewed interventions, assessments performed and documented by Esdras Lopez
--- NOTE | 2022-05-20 06:30 | NUR ---
Patient in room [facility]. I have received report from HALLIE MATSON and had the opportunity to ask questions and assume patient care.
[2022-05-20 07:10] VITALS: BP 106/50
[2022-05-20] MEDS: naltrexone 50mg tablet PO SCH (07:39)
[2022-05-20] MEDS: cefpodoxime proxetil 100mg tablet PO SCH (07:39)
[2022-05-20] MEDS: thiamine 100mg tablet PO SCH (07:39)
[2022-05-20] MEDS: folic acid 1mg tablet PO SCH (07:39)
[2022-05-20] MEDS: docusate sod 100mg capsule PO SCH (07:39)
[2022-05-20] MEDS: multivitamins, therapeutics tablet PO SCH (07:39)
[2022-05-20] MEDS: buPROPion 75mg tablet PO SCH ×2 (07:39→13:24)
[2022-05-20] MEDS: heparin, porcine 5000 units/ml vial SQ SCH ×3 (07:40→08:00)
[2022-05-20] MEDS: K and/or MAG REPLACEMENT MC SCH (08:00)
[2022-05-20] MEDS ORDERED: CEFD300C3 PO (10:26)
[2022-05-20] MEDS ORDERED: CIPR-202 PO (10:26)
[2022-05-20] MEDS ORDERED: NALT50TA PO (10:26)
[2022-05-20] MEDS ORDERED: BUPR-297 PO (10:26)
[2022-05-20 10:56] LABS: HEMOGLOBIN 12.2 g/dl (14.0-17.9); LYMPHOCYTES # (AUTO) 0.6 X10'3 (1.1-4.8); MEAN CORPUSCULAR HEMOGLOBIN 29.6 PG (27.0-31.0)
[2022-05-20 10:58] LABS: BASOPHILS % (AUTO) 0.3 % (0-1); EOSINOPHILS % (AUTO) 0.4 % (0-6); HEMATOCRIT 36.9 % (42.0-52.0); LYMPHOCYTES % (AUTO) 6.4 % (21-51); MEAN CORPUSCULAR HGB CONC 33.2 g/dL (33.0-36.5); MEAN CORPUSCULAR VOLUME 89.2 FL (78-98); MEAN PLATELET VOLUME 7.3 FL (7.4-10.4); MONOCYTES # (AUTO) 1.1 X10'3 (0-0.9); MONOCYTES % (AUTO) 12.2 % (2-12); NEUTROPHILS # (AUTO) 7.5 X10'3 (1.8-7.7); NEUTROPHILS % (AUTO) 80.7 % (42-75); PLATELET COUNT 688 X10'3 (140-440); RED BLOOD COUNT 4.13 X10'6 (4.70-6.10); RED CELL DISTRIBUTION WIDTH 14.5 % (11.5-14.5); WHITE BLOOD COUNT 9.3 X10'3 (4.5-11.0)
[2022-05-20 11:08] LABS: ALANINE AMINOTRANSFERASE 22 U/L (12-78); ALBUMIN 2.3 G/DL (3.4-5.0); ALBUMIN/GLOBULIN RATIO 0.5 (1.1-1.5); ALKALINE PHOSPHATASE 85 IU/L (46-116); ANION GAP 6 (8-16); ASPARTATE AMINO TRANSFERASE 19 U/L (10-37); BILIRUBIN,TOTAL 0.2 MG/DL (0.1-1.0); BLOOD UREA NITROGEN 21 MG/DL (7-18); BUN/CREATININE RATIO 23.9 (5.4-32.0); CALCIUM 9.5 MG/DL (8.5-10.1); CHLORIDE 98 MMOL/L (99-107); CREATININE 0.88 MG/DL (0.60-1.10); GLUCOSE 103 MG/DL (70-104); POTASSIUM 4.6 MMOL/L (3.5-5.1); SODIUM 134 MMOL/L (135-145); TOTAL CARBON DIOXIDE 30.4 MMOL/L (24-32); TOTAL PROTEIN 7.4 G/DL (6.4-8.2); eGFR > 90 ML/MIN
[2022-05-20 13:06] VITALS: BP 115/64
--- NOTE | 2022-05-20 15:17 | NUR ---
Discussed with patient discharge instructions and new prescriptions. Patient verbalized understanding of teaching and also stated that he wanted "to quit drugs for real." Patient belongings all packed and ready. Patient has walker in room. [facility] Patient also states brother will be transporting patient. Patient escorted down in wheelchair by [facility] and with all personal belongings including walker.
[2022-05-21] MEDS ORDERED: CEPH-585 PO (18:47)
== END 2022-05-20 15:26 | disposition home or self-care (01) | DRG 720 ==
LOC: ER 01:17 → ED HOLD 02:17 → SUR 3N 22:15
PROVIDERS: ADMIT Family Medicine; ATTEND Family Medicine
DX: A41.51 Sepsis due to Escherichia coli [E. coli] (principal); B18.2 Chronic viral hepatitis C; F15.10 Other stimulant abuse, uncomplicated; F20.9 Schizophrenia, unspecified; G24.01 Drug induced subacute dyskinesia; N10 Acute pyelonephritis; F10.10 Alcohol abuse, uncomplicated; F17.210 Nicotine dependence, cigarettes, uncomplicated; Y90.8 Blood alcohol level of 240 mg/100 ml or more; R32 Unspecified urinary incontinence; Z16.24 Resistance to multiple antibiotics; Z59.02 Unsheltered homelessness; Z88.0 Allergy status to penicillin; Z88.8 Allergy status to other drugs, medicaments and biological substances
CPT/HCPCS: 36415; 74176; 80053; 81001; 83690; 83735; 84100; 85007; 85008; 85025; 85610; 87081; 87088; 97110; 97116; 97161; 97530; 99285; G0378; J0696; J1644; J2060; J2270; J2405; J7030

== ENCOUNTER 2022-05-21 16:00 | Emergency (ER) | payer MEDICAID ==
[~2022-05-21] VITALS: Ht 185.4 cm; Wt 63.0 kg
[~2022-05-21 16:00] MED LIST changes: -ACET-1008 PO; +BUPR-297 PO; +CEFD300C3 PO; +CIPR-202 PO; -CIPR-259 PO; -HYDR-4383 PO; +NALT50TA PO; -NO HOME MEDS
[2022-05-21] MEDS ORDERED: CefTRIAXone 2gm/D5W 50ml BAG 50 ML IV ONE (17:15)
[2022-05-21] MEDS ORDERED: normal saline 1000ML IV soln IVB ONE (17:15)
[2022-05-21] MEDS ORDERED: ketorolac trometh. 30mg/ml inj. IV ONE (17:20)
[2022-05-21 17:23] LABS: CLARITY,URINE CLEAR (Clear); COLOR,URINE YELLOW (Yellow); GLUCOSE, URINE NEGATIVE (Neg); KETONES,URINE NEGATIVE (Neg); LEUKOCYTE ESTERASE ,URINE NEGATIVE (Neg); NITRITES, URINE NEGATIVE (Neg); OCCULT BLOOD,URINE NEGATIVE (Neg); PROTEIN,URINE NEGATIVE (Neg); UROBILINOGEN,URINE 0.2 E.U/dL (0.2-1.0)
[2022-05-21 17:24] LABS: UA COLLECTION TYPE CLN CATCH MIDSTREAM
[2022-05-21 17:36] LABS: BASOPHILS # (AUTO) 0.1 X10'3 (0-0.2); HEMOGLOBIN 12.5 g/dl (14.0-17.9); LYMPHOCYTES # (AUTO) 1.3 X10'3 (1.1-4.8); MONOCYTES # (AUTO) 1.5 X10'3 (0-0.9); PLATELET COUNT 693 X10'3 (140-440)
[2022-05-21 17:38] LABS: BASOPHILS % (AUTO) 0.7 % (0-1); EOSINOPHILS % (AUTO) 0.3 % (0-6); HEMATOCRIT 37.4 % (42.0-52.0); LYMPHOCYTES % (AUTO) 13.3 % (21-51); MEAN CORPUSCULAR HGB CONC 33.4 g/dL (33.0-36.5); MEAN PLATELET VOLUME 7.2 FL (7.4-10.4); NEUTROPHILS # (AUTO) 6.7 X10'3 (1.8-7.7); NEUTROPHILS % (AUTO) 69.7 % (42-75); RED BLOOD COUNT 4.16 X10'6 (4.70-6.10); RED CELL DISTRIBUTION WIDTH 14.4 % (11.5-14.5); WHITE BLOOD COUNT 9.6 X10'3 (4.5-11.0)
[2022-05-21 17:50] LABS: ALANINE AMINOTRANSFERASE 29 U/L (12-78); ALBUMIN 2.4 G/DL (3.4-5.0); ALBUMIN/GLOBULIN RATIO 0.5 (1.1-1.5); ALKALINE PHOSPHATASE 86 IU/L (46-116); ANION GAP 6 (8-16); ASPARTATE AMINO TRANSFERASE 31 U/L (10-37); BILIRUBIN,TOTAL 0.2 MG/DL (0.1-1.0); BLOOD UREA NITROGEN 18 MG/DL (7-18); BUN/CREATININE RATIO 19.8 (5.4-32.0); CALCIUM 9.4 MG/DL (8.5-10.1); CHLORIDE 99 MMOL/L (99-107); CREATININE 0.91 MG/DL (0.60-1.10); GLUCOSE 85 MG/DL (70-104); POTASSIUM 4.4 MMOL/L (3.5-5.1); SODIUM 134 MMOL/L (135-145); TOTAL CARBON DIOXIDE 29.3 MMOL/L (24-32); TOTAL PROTEIN 7.7 G/DL (6.4-8.2); eGFR > 90 ML/MIN
[2022-05-21] MEDS ORDERED: CEPH-585 PO (18:47)
[2022-05-21 18:52] LABS: TOTAL CELLS COUNTED 100
[2022-05-21 18:56] LABS: PLATELET ESTIMATE INCREASED
[2022-05-21 19:27] VITALS: BP 121/76
== END 2022-05-21 19:30 | disposition home or self-care (01) ==
LOC: ER 16:01
DX: M54.89 Other dorsalgia (principal); F32.A Depression, unspecified; F20.9 Schizophrenia, unspecified; F17.210 Nicotine dependence, cigarettes, uncomplicated; F12.90 Cannabis use, unspecified, uncomplicated; F15.90 Other stimulant use, unspecified, uncomplicated; F14.90 Cocaine use, unspecified, uncomplicated; Z98.890 Other specified postprocedural states; Z86.19 Personal history of other infectious and parasitic diseases; Z72.89 Other problems related to lifestyle; Z60.2 Problems related to living alone; Z56.0 Unemployment, unspecified; Z59.00 Homelessness unspecified; Z88.0 Allergy status to penicillin; Z88.8 Allergy status to other drugs, medicaments and biological substances; Z79.2 Long term (current) use of antibiotics; Z79.899 Other long term (current) drug therapy
CPT/HCPCS: 80053; 81003; 85007; 85025; 96365; 96375; 99284; J0696; J1885; J7030

== ENCOUNTER 2022-05-25 15:19 | Emergency (ER) | payer MEDICAID ==
[~2022-05-25] VITALS: Ht 185.4 cm; Wt 65.0 kg
[~2022-05-25 15:19] MED LIST changes: +CEPH-585 PO
[2022-05-25] MEDS ORDERED: acetaminophen 325mg tablet PO STA (15:31)
[2022-05-25] MEDS ORDERED: normal saline 1000ML IV soln IV ONE (15:35)
[2022-05-25] MEDS ORDERED: CefTRIAXone 2gm/D5W 50ml BAG 50 ML IV ONE (16:05)
[2022-05-25 16:54] LABS: BASOPHILS # (AUTO) 0.1 X10'3 (0-0.2); BASOPHILS % (AUTO) 0.7 % (0-1); EOSINOPHILS % (AUTO) 0.4 % (0-6); HEMOGLOBIN 12.2 g/dl (14.0-17.9); LYMPHOCYTES % (AUTO) 11.8 % (21-51); MEAN CORPUSCULAR HEMOGLOBIN 29.9 PG (27.0-31.0); MEAN CORPUSCULAR VOLUME 87.9 FL (78-98); MEAN PLATELET VOLUME 6.7 FL (7.4-10.4); MONOCYTES # (AUTO) 1.3 X10'3 (0-0.9); MONOCYTES % (AUTO) 15.9 % (2-12); NEUTROPHILS % (AUTO) 71.2 % (42-75); PLATELET COUNT 579 X10'3 (140-440); RED CELL DISTRIBUTION WIDTH 14.3 % (11.5-14.5); WHITE BLOOD COUNT 8.4 X10'3 (4.5-11.0)
[2022-05-25] MEDS ORDERED: magnesium citrate 296ml oral solution PO ONE (17:20)
[2022-05-25 17:27] LABS: ALANINE AMINOTRANSFERASE 32 U/L (12-78); ALBUMIN/GLOBULIN RATIO 0.4 (1.1-1.5); ALKALINE PHOSPHATASE 80 IU/L (46-116); ANION GAP 4 (8-16); ASPARTATE AMINO TRANSFERASE 28 U/L (10-37); BILIRUBIN,TOTAL 0.3 MG/DL (0.1-1.0); BLOOD UREA NITROGEN 12 MG/DL (7-18); CHLORIDE 99 MMOL/L (99-107); CREATININE 0.92 MG/DL (0.60-1.10); ETHANOL < 0.010 GM/DL (0.0-0.010); GLUCOSE 90 MG/DL (70-104); LIPASE 103 U/L (73-393); POTASSIUM 4.7 MMOL/L (3.5-5.1); SODIUM 134 MMOL/L (135-145); TOTAL CARBON DIOXIDE 30.8 MMOL/L (24-32); TOTAL PROTEIN 7.1 G/DL (6.4-8.2); eGFR > 90 ML/MIN
--- NOTE | 2022-05-25 17:51 | NUR ---
Pt had a BM without me having to give the MD diaz aware. Pt stated that he feels better at this time.
[2022-05-25 18:00] LABS: CLARITY,URINE CLEAR (Clear); COLOR,URINE YELLOW (Yellow); GLUCOSE, URINE NEGATIVE (Neg); KETONES,URINE NEGATIVE (Neg); LEUKOCYTE ESTERASE ,URINE NEGATIVE (Neg); NITRITES, URINE NEGATIVE (Neg); OCCULT BLOOD,URINE NEGATIVE (Neg); PH,URINE 5.5 (4.8-8.0); PROTEIN,URINE NEGATIVE (Neg); UROBILINOGEN,URINE 0.2 E.U/dL (0.2-1.0)
[2022-05-25 18:05] LABS: UA COLLECTION TYPE NON-SPECIFIED
[2022-05-25 18:08] VITALS: BP 101/62
[2022-05-25 18:22] LABS: URINE AMPHETAMINE SCREEN NEGATIVE (Neg); URINE BARBITUATE SCREEN NEGATIVE (Neg); URINE BENZODIAZEPINES SCREEN NEGATIVE (Neg); URINE CANNABINOID SCREEN NEGATIVE (Neg); URINE COCAINE SCREEN NEGATIVE (Neg); URINE METHADONE SCREEN NEGATIVE (Neg); URINE OPIATE SCREEN NEGATIVE (Neg); URINE PHENCYCLIDINE SCREEN NEGATIVE (Neg)
--- NOTE | 2022-05-26 08:00 | NUR ---
Received result from PIV culture results gram negative rods. Notified Dr. patterson regarding this and he stated patient need to return to ER for further work up. I attempted to contact patient at which patient did not answer so I left a voicemail message.
== END 2022-05-25 18:51 | disposition home or self-care (01) ==
LOC: ER 15:20
DX: K59.00 Constipation, unspecified (principal); Z20.822 Contact with and (suspected) exposure to COVID-19; F32.A Depression, unspecified; F20.9 Schizophrenia, unspecified; F12.10 Cannabis abuse, uncomplicated; F15.10 Other stimulant abuse, uncomplicated; Z88.5 Allergy status to narcotic agent; Z79.899 Other long term (current) drug therapy; Z79.2 Long term (current) use of antibiotics; Z59.00 Homelessness unspecified; Z56.0 Unemployment, unspecified; Z88.0 Allergy status to penicillin
CPT/HCPCS: 36415; 71045; 74176; 80053; 80305; 80320; 81003; 83605; 83690; 84145; 85025; 87040; 87186; 87635; 96361; 96365; 99285; C9803; J0696; J7030; 87077

== ENCOUNTER 2022-05-29 10:47 | Emergency (ER) | payer MEDICAID ==
[~2022-05-29] VITALS: Ht 185.4 cm; Wt 68.2 kg
[~2022-05-29 10:47] MED LIST changes: -CEFD300C3 PO; -CIPR-202 PO
--- NOTE | 2022-05-29 10:50 | NUR ---
Call [facility] to pick him up. [phone]
[2022-05-29 11:06] VITALS: BP 106/59
[2022-05-29 14:08] LABS: CLARITY,URINE CLEAR (Clear); GLUCOSE, URINE NEGATIVE (Neg); KETONES,URINE NEGATIVE (Neg); LEUKOCYTE ESTERASE ,URINE NEGATIVE (Neg); NITRITES, URINE NEGATIVE (Neg); OCCULT BLOOD,URINE NEGATIVE (Neg); PH,URINE 5.5 (4.8-8.0); PROTEIN,URINE NEGATIVE (Neg); UROBILINOGEN,URINE 0.2 E.U/dL (0.2-1.0)
[2022-05-29 14:08] LABS: BASOPHILS # (AUTO) 0.1 X10'3 (0-0.2); BASOPHILS % (AUTO) 0.6 % (0-1); EOSINOPHILS # (AUTO) 0.1 X10'3 (0-0.9); EOSINOPHILS % (AUTO) 0.7 % (0-6); HEMATOCRIT 32.5 % (42.0-52.0); HEMOGLOBIN 11.1 g/dl (14.0-17.9); LYMPHOCYTES # (AUTO) 1.2 X10'3 (1.1-4.8); LYMPHOCYTES % (AUTO) 12.1 % (21-51); MEAN CORPUSCULAR HEMOGLOBIN 29.5 PG (27.0-31.0); MEAN PLATELET VOLUME 6.6 FL (7.4-10.4); MONOCYTES # (AUTO) 1.1 X10'3 (0-0.9); MONOCYTES % (AUTO) 11.1 % (2-12); NEUTROPHILS # (AUTO) 7.4 X10'3 (1.8-7.7); NEUTROPHILS % (AUTO) 75.5 % (42-75); PLATELET COUNT 462 X10'3 (140-440); RED BLOOD COUNT 3.74 X10'6 (4.70-6.10); RED CELL DISTRIBUTION WIDTH 14.6 % (11.5-14.5); WHITE BLOOD COUNT 9.8 X10'3 (4.5-11.0)
[2022-05-29 14:09] LABS: COLOR,URINE STRAW (Yellow); UA COLLECTION TYPE CLN CATCH MIDSTREAM
[2022-05-29 14:26] LABS: ALANINE AMINOTRANSFERASE 19 U/L (12-78); ALBUMIN/GLOBULIN RATIO 0.4 (1.1-1.5); ALKALINE PHOSPHATASE 83 IU/L (46-116); ANION GAP 2 (8-16); ASPARTATE AMINO TRANSFERASE 15 U/L (10-37); BILIRUBIN,TOTAL 0.1 MG/DL (0.1-1.0); BLOOD UREA NITROGEN 14 MG/DL (7-18); BUN/CREATININE RATIO 17.3 (5.4-32.0); CALCIUM 8.9 MG/DL (8.5-10.1); CHLORIDE 102 MMOL/L (99-107); CREATININE 0.81 MG/DL (0.60-1.10); GLUCOSE 90 MG/DL (70-104); POTASSIUM 4.2 MMOL/L (3.5-5.1); SODIUM 135 MMOL/L (135-145); eGFR > 90 ML/MIN
[2022-05-29] MEDS ORDERED: CefTRIAXone/D5W-Rocephin 1gm 50 ML IV ONE (14:35)
[2022-05-29] MEDS ORDERED: CEFD300C3 PO ×2 (14:37→14:50)
--- NOTE | 2022-05-29 16:31 | NUR ---
PT NEON SIGN INSTALLER ELTON ALVARADO CALLED FOR PICK. NEON SIGN INSTALLER STATED " I CANNOT PICK HIM UP, I THOUGHT HE WAS STAYING FOR A COUPLE DAYS. TRY CALLING HIS BROTHER, HE IS RESPONSIBLE"
--- NOTE | 2022-05-29 16:32 | NUR ---
PTS BROTHER ANGELITO CALLED FOR PT DRIVER'S LICENSE EXAMINER. ANGELITO STATED " I CANNOT PICK HIM UP, CAN YOU CALL HIM A CAB". ANGELITO STATED HE WOULD BE [facility] UP[facility] ARRIVAL.
--- NOTE | 2022-05-29 16:35 | NUR ---
PTS BROTHER CALLED TWICE TO VERIFY HE WOULD BE [place] [facility] ARRIVAL OF PT.
--- NOTE | 2022-05-29 16:38 | NUR ---
CAB CALLED FOR PATIENT. EST TIME 1 HOUR.
== END 2022-05-29 17:15 | disposition home or self-care (01) ==
LOC: ER 10:52
DX: R78.81 Bacteremia (principal); B96.20 Unspecified Escherichia coli [E. coli] as the cause of diseases classified elsewhere; Z16.24 Resistance to multiple antibiotics; Z88.8 Allergy status to other drugs, medicaments and biological substances; Z59.00 Homelessness unspecified; Z56.0 Unemployment, unspecified
CPT/HCPCS: 36415; 80053; 81003; 83605; 84145; 85025; 87040; 87077; 87186; 96365; 99284; J0696

== ENCOUNTER 2023-12-31 09:53 | Emergency (ER) | payer MEDICAID ==
[~2023-12-31] VITALS: Ht 185.4 cm; Wt 83.9 kg
[~2023-12-31 09:53] MED LIST changes: +CEFD300C3 PO; -CEPH-585 PO; +LACT10SO3 PO
[2023-12-31] MEDS ORDERED: NO HOME MEDS (10:13)
[2023-12-31 11:04] LABS: BASOPHILS % (AUTO) 0.6 % (0-1); EOSINOPHILS % (AUTO) 0.8 % (0-6); HEMATOCRIT 46.6 % (42.0-52.0); HEMOGLOBIN 15.3 g/dl (14.0-17.9); LYMPHOCYTES # (AUTO) 0.9 X10'3 (1.1-4.8); MEAN CORPUSCULAR HEMOGLOBIN 30.6 PG (27.0-31.0); MEAN CORPUSCULAR HGB CONC 32.9 g/dL (33.0-36.5); MEAN CORPUSCULAR VOLUME 92.9 FL (78-98); MONOCYTES # (AUTO) 0.4 X10'3 (0-0.9); MONOCYTES % (AUTO) 10.5 % (2-12); NEUTROPHILS # (AUTO) 2.6 X10'3 (1.8-7.7); NEUTROPHILS % (AUTO) 65.1 % (42-75); PLATELET COUNT 168 X10'3 (140-440); RED BLOOD COUNT 5.01 X10'6 (4.70-6.10); WHITE BLOOD COUNT 3.9 X10'3 (4.5-11.0)
[2023-12-31 11:16] LABS: ALANINE AMINOTRANSFERASE 25 U/L (12-78); ALBUMIN 3.6 G/DL (3.4-5.0); ALBUMIN/GLOBULIN RATIO 0.8 (1.1-1.5); ALKALINE PHOSPHATASE 90 IU/L (46-116); ANION GAP 7 (8-16); ASPARTATE AMINO TRANSFERASE 24 U/L (10-37); BILIRUBIN,TOTAL 0.8 MG/DL (0.1-1.0); BLOOD UREA NITROGEN 17 MG/DL (7-18); BUN/CREATININE RATIO 14.4 (10.0-20.0); CALCIUM 9.3 MG/DL (8.5-10.1); CHLORIDE 105 MMOL/L (99-107); CREATININE 1.18 MG/DL (0.60-1.10); GLUCOSE 136 MG/DL (70-104); LIPASE 19 U/L (16-77); POTASSIUM 3.1 MMOL/L (3.5-5.1); SODIUM 140 MMOL/L (135-145); TOTAL CARBON DIOXIDE 28.3 MMOL/L (24-32); TOTAL PROTEIN 7.9 G/DL (6.4-8.2); eCRCL 75 ML/MIN; eGFR 76 ML/MIN
[2023-12-31 13:55] LABS: CREATINE KINASE 625 U/L (39-308)
[2023-12-31] MEDS: ondansetron/PF 4mg/2ml inj IV ONE (14:19)
[2023-12-31] MEDS: normal saline 1000ml 1,000 ML IV ONE (14:19)
[2023-12-31] MEDS: normal saline 1000ML IV soln IV ONE (15:21)
[2023-12-31] MEDS: potassium Cl 20 mEq SR tablet PO ONE (16:13)
[2023-12-31 18:14] VITALS: BP 100/52; PULSE 78; RESP 14; TEMP 98.9; O2SAT 98
== END 2023-12-31 19:07 | disposition home or self-care (01) ==
LOC: ER 09:54
DX: E86.0 Dehydration (principal); F15.10 Other stimulant abuse, uncomplicated; E87.6 Hypokalemia; M62.82 Rhabdomyolysis; F12.90 Cannabis use, unspecified, uncomplicated; Z79.899 Other long term (current) drug therapy; Z88.0 Allergy status to penicillin; Z88.8 Allergy status to other drugs, medicaments and biological substances
CPT/HCPCS: 36415; 80053; 82550; 83690; 85025; 93005; 96361; 96374; 99284; J2405; J7030

== ENCOUNTER 2024-05-13 09:33 | Emergency (ER) | payer MEDICAID ==
[~2024-05-13] VITALS: Ht 185.4 cm; Wt 81.5 kg
[~2024-05-13 09:33] MED LIST changes: -BUPR-297 PO; -CEFD300C3 PO; -LACT10SO3 PO; -NALT50TA PO; +NO HOME MEDS
[2024-05-13 10:10] VITALS: BP 117/79; PULSE 68; RESP 16; TEMP 99.3; O2SAT 98
== END 2024-05-13 10:13 | disposition home or self-care (01) ==
LOC: ER 09:33
DX: B34.9 Viral infection, unspecified (principal); Z20.822 Contact with and (suspected) exposure to COVID-19; F32.A Depression, unspecified; F20.9 Schizophrenia, unspecified; F12.90 Cannabis use, unspecified, uncomplicated; F15.90 Other stimulant use, unspecified, uncomplicated; Z88.8 Allergy status to other drugs, medicaments and biological substances; Z88.0 Allergy status to penicillin; Z59.00 Homelessness unspecified; Z98.890 Other specified postprocedural states
CPT/HCPCS: 36415; 87811; 99283

== ENCOUNTER 2024-10-14 13:23 | Inpatient (IN) | payer MEDICAID ==
[~2024-10-14] VITALS: Ht 182.9 cm; Wt 78.4 kg
[2024-10-14 14:13] LABS: BASOPHILS % (AUTO) 0.8 % (0-1); EOSINOPHILS % (AUTO) 0.4 % (0-6); HEMATOCRIT 49.4 % (42.0-52.0); HEMOGLOBIN 17.1 g/dl (14.0-17.9); LYMPHOCYTES # (AUTO) 0.7 X10'3 (1.1-4.8); LYMPHOCYTES % (AUTO) 16.3 % (21-51); MEAN CORPUSCULAR HEMOGLOBIN 31.5 PG (27.0-31.0); MEAN CORPUSCULAR HGB CONC 34.5 g/dL (33.0-36.5); MEAN CORPUSCULAR VOLUME 91.4 FL (78-98); MEAN PLATELET VOLUME 8.3 FL (7.4-10.4); MONOCYTES # (AUTO) 0.6 X10'3 (0-0.9); MONOCYTES % (AUTO) 15.1 % (2-12); NEUTROPHILS # (AUTO) 2.7 X10'3 (1.8-7.7); NEUTROPHILS % (AUTO) 67.4 % (42-75); PLATELET COUNT 188 X10'3 (140-440); RED BLOOD COUNT 5.41 X10'6 (4.70-6.10); RED CELL DISTRIBUTION WIDTH 15.8 % (11.5-14.5)
[2024-10-14 15:41] LABS: APTT 29 SECONDS (22-32); PROTHROMBIN TIME 10.7 SECONDS (9.0-12.0)
[2024-10-14 15:55] LABS: ALANINE AMINOTRANSFERASE 26 U/L (12-78); ALBUMIN 3.9 G/DL (3.4-5.0); ALBUMIN/GLOBULIN RATIO 0.8 (1.1-1.5); ALKALINE PHOSPHATASE 95 IU/L (46-116); ANION GAP 12 (8-16); BILIRUBIN,TOTAL 0.5 MG/DL (0.1-1.0); BLOOD UREA NITROGEN 16 MG/DL (7-18); BUN/CREATININE RATIO 15.7 (10.0-20.0); CALCIUM 9.5 MG/DL (8.5-10.1); CHLORIDE 102 MMOL/L (99-107); CREATININE 1.02 MG/DL (0.60-1.10); GLUCOSE 80 MG/DL (70-104); LIPASE 16 U/L (16-77); SODIUM 139 MMOL/L (135-145); TOTAL CARBON DIOXIDE 25.1 MMOL/L (24-32); TOTAL PROTEIN 8.8 G/DL (6.4-8.2); eCRCL 83 ML/MIN; eGFR 90 ML/MIN
[2024-10-14] MEDS ORDERED: potassium Cl 40MEQ/1/2NS 520ml 520 ML IV PRN (15:55)
[2024-10-14] MEDS ORDERED: morphine 2 MG/ML inj. syringe IV PRN ×2 (15:55)
[2024-10-14] MEDS ORDERED: HYDROmorphone/PF 0.2 MG/ML SYRINGE IV PRN (15:55)
[2024-10-14] MEDS ORDERED: mag hydrox/Alum hydrox/simeth 30ml oral suspension PO PRN (15:55)
[2024-10-14] MEDS ORDERED: magnesium sulf-water 4G/100mL 100 ML IV PRN (15:55)
[2024-10-14] MEDS ORDERED: bisacodyl 10mg suppository rectal RC PRN (15:55)
[2024-10-14] MEDS ORDERED: magnesium hydroxide 30ml (MOM) UD suspension PO PRN (15:55)
[2024-10-14] MEDS ORDERED: potassium Cl 20 mEq SR tablet PO PRN ×2 (15:55)
[2024-10-14] MEDS ORDERED: magnesium sulf-water 2g/50mL 50 ML IV PRN (15:55)
[2024-10-14] MEDS ORDERED: acetaminophen 325mg tablet PO PRN (15:55)
[2024-10-14] MEDS ORDERED: magnesium Cl slow-release 64mg tablet PO PRN (15:55)
[2024-10-14 15:57] LABS: ASPARTATE AMINO TRANSFERASE 35 U/L (10-37); POTASSIUM 4.3 MMOL/L (3.5-5.1)
[2024-10-14 16:25] LABS: PRO BRAIN NATRIURETIC PEPTIDE 30 PG/ML (0-125)
[2024-10-14] MEDS: ondansetron/PF 4mg/2ml inj IV PRN (16:46)
[2024-10-14] MEDS: metroNIDAZOLE-Flagyl 500mg/NS 100 ML IV SCH (16:46)
[2024-10-14] MEDS: HYDROmorphone inj. 0.5 MG/0.5 ML DISP.SYRIN IV PRN (16:46)
[2024-10-14] MEDS: normal saline 1000ml 1,000 ML IV SCH (16:47)
[2024-10-14] MEDS: ciprofloxacin/D5W 200mg/100mL 100 ML IV SCH (17:27)
[2024-10-14 18:00] VITALS: BP 150/82; PULSE 75; RESP 16; TEMP 98.1; O2SAT 93
[2024-10-14 18:08] LABS: ETHANOL < 10 MG/DL (<10)
[2024-10-14 19:30] VITALS: BP_SYST 132; BP_SYST 87; BP_DIAS 52; BP_DIAS 71; PULSE 72; RESP 19; TEMP 99.1; O2SAT 94
[2024-10-14] MEDS: K and/or MAG REPLACEMENT MC SCH (20:00)
[2024-10-14] MEDS ORDERED: diatr meglu/diatrizoate 30ml oral sol.-(3 dose) bottle PO SCH (21:00)
[2024-10-14] MEDS: heparin, porcine 5000 units/ml vial SQ SCH (21:29)
[2024-10-14] MEDS: docusate sod 100mg capsule PO SCH (21:29)
[2024-10-14] MEDS: diatr meglu/diatrizoate 30ml oral sol.-(3 dose) bottle PO SCH (21:31)
[2024-10-14 22:00] VITALS: BP 124/78; PULSE 54; RESP 17; TEMP 96.1; O2SAT 93
[2024-10-15] VITALS (7 sets, daily range): BP systolic 87–132; BP diastolic 52–85; PULSE 64–72; RESP 16–20; TEMP 98.4–99.1; O2SAT 94–100
[2024-10-15 06:11] LABS: BASOPHILS % (AUTO) 0.7 % (0-1); EOSINOPHILS % (AUTO) 0 % (0-6); HEMATOCRIT 50.7 % (42.0-52.0); HEMOGLOBIN 16.9 g/dl (14.0-17.9); LYMPHOCYTES # (AUTO) 0.7 X10'3 (1.1-4.8); MEAN CORPUSCULAR HEMOGLOBIN 31.1 PG (27.0-31.0); MEAN CORPUSCULAR HGB CONC 33.2 g/dL (33.0-36.5); MEAN CORPUSCULAR VOLUME 93.6 FL (78-98); MEAN PLATELET VOLUME 8.7 FL (7.4-10.4); MONOCYTES # (AUTO) 0.7 X10'3 (0-0.9); MONOCYTES % (AUTO) 16.1 % (2-12); NEUTROPHILS # (AUTO) 2.9 X10'3 (1.8-7.7); NEUTROPHILS % (AUTO) 67.2 % (42-75); PLATELET COUNT 183 X10'3 (140-440); RED BLOOD COUNT 5.42 X10'6 (4.70-6.10); RED CELL DISTRIBUTION WIDTH 14.5 % (11.5-14.5); WHITE BLOOD COUNT 4.3 X10'3 (4.5-11.0)
[2024-10-15 06:30] LABS: ALANINE AMINOTRANSFERASE 20 U/L (12-78); ALBUMIN 3.5 G/DL (3.4-5.0); ALBUMIN/GLOBULIN RATIO 0.7 (1.1-1.5); ALKALINE PHOSPHATASE 88 IU/L (46-116); ANION GAP 11 (8-16); ASPARTATE AMINO TRANSFERASE 26 U/L (10-37); BILIRUBIN,TOTAL 0.5 MG/DL (0.1-1.0); BLOOD UREA NITROGEN 18 MG/DL (7-18); BUN/CREATININE RATIO 17.6 (10.0-20.0); CALCIUM 9.1 MG/DL (8.5-10.1); CHLORIDE 103 MMOL/L (99-107); CREATININE 1.02 MG/DL (0.60-1.10); GLUCOSE 90 MG/DL (70-104); MAGNESIUM 2.2 MG/DL (1.5-2.4); POTASSIUM 3.6 MMOL/L (3.5-5.1); SODIUM 139 MMOL/L (135-145); TOTAL CARBON DIOXIDE 25.1 MMOL/L (24-32); TOTAL PROTEIN 8.2 G/DL (6.4-8.2); eCRCL 83 ML/MIN; eGFR 90 ML/MIN
[2024-10-15] MEDS ORDERED: iohexol 350MG/ML 100ml bottle IV ONE (10:59)
[2024-10-15 22:51] LABS: BILIRUBIN,URINE SMALL (Neg); CLARITY,URINE CLEAR (Clear); COLOR,URINE YELLOW (Yellow); GLUCOSE, URINE NEGATIVE (Neg); KETONES,URINE 15 mg/dl (Neg); LEUKOCYTE ESTERASE ,URINE NEGATIVE (Neg); NITRITES, URINE NEGATIVE (Neg); OCCULT BLOOD,URINE NEGATIVE (Neg); PH,URINE 5.5 (4.8-8.0); PROTEIN,URINE 30 mg/dl (Neg)
[2024-10-15 22:57] LABS: UA COLLECTION TYPE VOIDED
[2024-10-15 22:58] LABS: BACTERIA,URINE NONE SEEN /HPF (Neg); RBC,URINE NONE SEEN /HPF (0-2); WBC,URINE 0-4 /HPF (0-4)
[2024-10-15 22:59] LABS: MUCUS STRANDS MODERATE /LPF (Neg); SQUAMOUS EPITHELIAL CELL,UR FEW /LPF (FEW)
[2024-10-15 23:03] LABS: URINE AMPHETAMINE SCREEN POSITIVE (Neg); URINE BARBITUATE SCREEN NEGATIVE (Neg); URINE BENZODIAZEPINES SCREEN NEGATIVE (Neg); URINE CANNABINOID SCREEN POSITIVE (Neg); URINE COCAINE SCREEN NEGATIVE (Neg); URINE METHADONE SCREEN NEGATIVE (Neg); URINE OPIATE SCREEN NEGATIVE (Neg); URINE PHENCYCLIDINE SCREEN NEGATIVE (Neg)
[2024-10-16 06:00] VITALS: BP 111/72; PULSE 72; RESP 16; TEMP 99; O2SAT 94
[2024-10-16 08:00] VITALS: RESP 16; O2SAT 94
[2024-10-16 09:23] LABS: EOSINOPHILS % (AUTO) 0 % (0-6); LYMPHOCYTES # (AUTO) 0.7 X10'3 (1.1-4.8); NEUTROPHILS # (AUTO) 2.4 X10'3 (1.8-7.7); RED CELL DISTRIBUTION WIDTH 14.3 % (11.5-14.5); WHITE BLOOD COUNT 4.1 X10'3 (4.5-11.0)
[2024-10-16 09:24] LABS: BASOPHILS % (AUTO) 0.4 % (0-1); HEMATOCRIT 49.6 % (42.0-52.0); HEMOGLOBIN 16.2 g/dl (14.0-17.9); LYMPHOCYTES % (AUTO) 17.1 % (21-51); MEAN CORPUSCULAR HEMOGLOBIN 30.8 PG (27.0-31.0); MEAN CORPUSCULAR HGB CONC 32.6 g/dL (33.0-36.5); MEAN CORPUSCULAR VOLUME 94.6 FL (78-98); MEAN PLATELET VOLUME 8.7 FL (7.4-10.4); MONOCYTES % (AUTO) 23.9 % (2-12); NEUTROPHILS % (AUTO) 58.6 % (42-75); PLATELET COUNT 172 X10'3 (140-440); RED BLOOD COUNT 5.24 X10'6 (4.70-6.10)
[2024-10-16 09:51] LABS: ALANINE AMINOTRANSFERASE 20 U/L (12-78); ALBUMIN/GLOBULIN RATIO 0.7 (1.1-1.5); ALKALINE PHOSPHATASE 73 IU/L (46-116); ANION GAP 7 (8-16); ASPARTATE AMINO TRANSFERASE 18 U/L (10-37); BILIRUBIN,TOTAL 0.5 MG/DL (0.1-1.0); BLOOD UREA NITROGEN 18 MG/DL (7-18); BUN/CREATININE RATIO 16.8 (10.0-20.0); CALCIUM 8.5 MG/DL (8.5-10.1); CHLORIDE 105 MMOL/L (99-107); CREATININE 1.07 MG/DL (0.60-1.10); GLUCOSE 139 MG/DL (70-104); POTASSIUM 3.6 MMOL/L (3.5-5.1); SODIUM 140 MMOL/L (135-145); TOTAL CARBON DIOXIDE 27.8 MMOL/L (24-32); TOTAL PROTEIN 7.4 G/DL (6.4-8.2); eCRCL 80 ML/MIN; eGFR 85 ML/MIN
[2024-10-16 10:00] VITALS: BP 132/81; PULSE 57; RESP 18; TEMP 97.7; O2SAT 100
[2024-10-16 10:32] LABS: PLATELET ESTIMATE NORMAL; TOTAL CELLS COUNTED 100
[2024-10-16] MEDS: metoclopramide 5 mg/ml inj IV SCH (10:46)
[2024-10-16 18:45] VITALS: BP 133/84; PULSE 62; RESP 16; TEMP 99.4; O2SAT 98
[2024-10-16] MEDS: diatr meglu/diatrizoate 30ml oral sol.-(3 dose) bottle PO SCH (21:23)
[2024-10-16 22:00] VITALS: BP 132/85; PULSE 63; RESP 16; TEMP 98.2; O2SAT 96
[2024-10-17 05:56] LABS: BASOPHILS % (AUTO) 0.5 % (0-1); EOSINOPHILS % (AUTO) 0 % (0-6); HEMATOCRIT 48.4 % (42.0-52.0); HEMOGLOBIN 16.1 g/dl (14.0-17.9); LYMPHOCYTES # (AUTO) 0.5 X10'3 (1.1-4.8); LYMPHOCYTES % (AUTO) 12.9 % (21-51); MEAN CORPUSCULAR HEMOGLOBIN 31.4 PG (27.0-31.0); MEAN CORPUSCULAR HGB CONC 33.3 g/dL (33.0-36.5); MEAN CORPUSCULAR VOLUME 94.3 FL (78-98); MEAN PLATELET VOLUME 9.2 FL (7.4-10.4); MONOCYTES # (AUTO) 0.7 X10'3 (0-0.9); MONOCYTES % (AUTO) 18.6 % (2-12); NEUTROPHILS # (AUTO) 2.5 X10'3 (1.8-7.7); PLATELET COUNT 165 X10'3 (140-440); RED BLOOD COUNT 5.13 X10'6 (4.70-6.10); WHITE BLOOD COUNT 3.7 X10'3 (4.5-11.0)
[2024-10-17 06:00] VITALS: BP 121/58; PULSE 66; RESP 16; TEMP 99.9; O2SAT 96
[2024-10-17 06:27] LABS: ALANINE AMINOTRANSFERASE 17 U/L (12-78); ALBUMIN 2.8 G/DL (3.4-5.0); ALBUMIN/GLOBULIN RATIO 0.7 (1.1-1.5); ALKALINE PHOSPHATASE 67 IU/L (46-116); ANION GAP 8 (8-16); ASPARTATE AMINO TRANSFERASE 20 U/L (10-37); BILIRUBIN,TOTAL 0.5 MG/DL (0.1-1.0); BLOOD UREA NITROGEN 13 MG/DL (7-18); BUN/CREATININE RATIO 15.1 (10.0-20.0); CALCIUM 8.3 MG/DL (8.5-10.1); CHLORIDE 107 MMOL/L (99-107); CREATININE 0.86 MG/DL (0.60-1.10); GLUCOSE 98 MG/DL (70-104); POTASSIUM 3.6 MMOL/L (3.5-5.1); SODIUM 141 MMOL/L (135-145); TOTAL CARBON DIOXIDE 26.2 MMOL/L (24-32); TOTAL PROTEIN 7.1 G/DL (6.4-8.2); eCRCL 99 ML/MIN; eGFR > 90 ML/MIN
[2024-10-17 07:30] VITALS: BP 131/82; PULSE 95; RESP 12; TEMP 99.2; O2SAT 94
[2024-10-17 07:31] VITALS: RESP 12; O2SAT 94
[2024-10-17 10:00] VITALS: BP 116/70; PULSE 85; RESP 12; TEMP 98.6; O2SAT 97
[2024-10-17 15:07] VITALS: BP 119/71; PULSE 87; RESP 14; TEMP 99; O2SAT 95
[2024-10-18 06:00] VITALS: BP 124/61; PULSE 54; RESP 16; TEMP 98.1; O2SAT 97
[2024-10-18 06:01] LABS: BASOPHILS % (AUTO) 0.6 % (0-1); EOSINOPHILS % (AUTO) 0.1 % (0-6); HEMATOCRIT 47.7 % (42.0-52.0); HEMOGLOBIN 15.8 g/dl (14.0-17.9); LYMPHOCYTES # (AUTO) 0.8 X10'3 (1.1-4.8); LYMPHOCYTES % (AUTO) 25.8 % (21-51); MEAN CORPUSCULAR HEMOGLOBIN 30.7 PG (27.0-31.0); MEAN PLATELET VOLUME 8.9 FL (7.4-10.4); MONOCYTES # (AUTO) 0.8 X10'3 (0-0.9); MONOCYTES % (AUTO) 24.9 % (2-12); NEUTROPHILS # (AUTO) 1.5 X10'3 (1.8-7.7); NEUTROPHILS % (AUTO) 48.6 % (42-75); PLATELET COUNT 170 X10'3 (140-440); RED BLOOD COUNT 5.13 X10'6 (4.70-6.10); RED CELL DISTRIBUTION WIDTH 14.1 % (11.5-14.5); WHITE BLOOD COUNT 3.1 X10'3 (4.5-11.0)
[2024-10-18 06:26] LABS: ALANINE AMINOTRANSFERASE 12 U/L (12-78); ALBUMIN 2.7 G/DL (3.4-5.0); ALBUMIN/GLOBULIN RATIO 0.6 (1.1-1.5); ALKALINE PHOSPHATASE 63 IU/L (46-116); ANION GAP 7 (8-16); ASPARTATE AMINO TRANSFERASE 16 U/L (10-37); BILIRUBIN,TOTAL 0.4 MG/DL (0.1-1.0); BLOOD UREA NITROGEN 11 MG/DL (7-18); BUN/CREATININE RATIO 13.6 (10.0-20.0); CALCIUM 8.6 MG/DL (8.5-10.1); CHLORIDE 106 MMOL/L (99-107); CREATININE 0.81 MG/DL (0.60-1.10); GLUCOSE 97 MG/DL (70-104); POTASSIUM 3.6 MMOL/L (3.5-5.1); SODIUM 140 MMOL/L (135-145); TOTAL PROTEIN 6.9 G/DL (6.4-8.2); eCRCL 105 ML/MIN; eGFR > 90 ML/MIN
[2024-10-18 08:00] VITALS: RESP 16; O2SAT 97
[2024-10-18 10:00] VITALS: BP 113/72; PULSE 43; RESP 16; TEMP 97.8; O2SAT 98
[2024-10-18] MEDS ORDERED: METO10TA3 PO (11:57)
== END 2024-10-18 14:10 | disposition home or self-care (01) | DRG 247 ==
LOC: ER 13:24 → ED HOLD 16:01 → UNDOADMIN 17:49 → EDBEDREQ 18:52 → ORTHO 4S 19:27 → ED HOLD 19:27
PROVIDERS: ADMIT Internal Medicine Critical Care Medicine; ATTEND Internal Medicine Critical Care Medicine
PROC: B4201ZZ Computerized Tomography (CT Scan) of Abdominal Aorta using Low Osmolar Contrast (ICD-10-PCS; principal; 2024-10-15)
PROC: B4241ZZ Computerized Tomography (CT Scan) of Superior Mesenteric Artery using Low Osmolar Contrast (ICD-10-PCS; 2024-10-15)
PROC: B4281ZZ Computerized Tomography (CT Scan) of Bilateral Renal Arteries using Low Osmolar Contrast (ICD-10-PCS; 2024-10-15)
PROC: B42C1ZZ Computerized Tomography (CT Scan) of Pelvic Arteries using Low Osmolar Contrast (ICD-10-PCS; 2024-10-15)
PROC: B4211ZZ Computerized Tomography (CT Scan) of Celiac Artery using Low Osmolar Contrast (ICD-10-PCS; 2024-10-15)
DX: K56.609 Unspecified intestinal obstruction, unspecified as to partial versus complete obstruction (principal); B19.20 Unspecified viral hepatitis C without hepatic coma; F19.10 Other psychoactive substance abuse, uncomplicated; F20.9 Schizophrenia, unspecified; F32.A Depression, unspecified; Z88.5 Allergy status to narcotic agent; Z88.0 Allergy status to penicillin; Z59.00 Homelessness unspecified; Z90.49 Acquired absence of other specified parts of digestive tract
CPT/HCPCS: 36415; 71045; 71275; 74176; 74177; 80053; 80305; 80320; 81001; 83605; 83690; 83735; 83880; 84145; 85007; 85025; 85610; 85730; 87081; 93306; 93931; 96365; 96375; 97116; 97161; 99285; G0378; J0744; J1171; J1644; J2405; J2765; J3490; J7030; Q9963; Q9967